=== PATIENT | female | born 1965 | race Caucasian/White ===

== ENCOUNTER 2016-12-15 09:19 | Emergency (ER) | payer MEDICARE ==
[2013-02-16 07:03] VITALS: BMI 23.2
== END 2016-12-15 16:29 | disposition home or self-care (01) ==
LOC: D.ER 09:19
DX: T14.8 Other injury of unspecified body region (principal); Y04.2XXA Assault by strike against or bumped into by another person, initial encounter; Y93.89 Activity, other specified; Y92.019 Unspecified place in single-family (private) house as the place of occurrence of the external cause; S02.2XXA Fracture of nasal bones, initial encounter for closed fracture; F20.9 Schizophrenia, unspecified; F17.200 Nicotine dependence, unspecified, uncomplicated

== ENCOUNTER 2017-07-18 13:47 | Emergency (ER) | payer MEDICARE ==
[2013-02-16 07:03] VITALS: BMI 23.2
[2017-07-18 18:11] LABS: BASOPHILS 0.2 % (0-2); EOSINOPHILS 2.4 % (0-7); HEMATOCRIT 45.2 % (36.0-48.0); HEMOGLOBIN 15.2 g/dL (12-16); IMMATURE GRANULOCYTES 0.1 % (0-5); LYMPHOCYTES 25.8 % (15-50); MCHC 33.6 g/dL (31.0-37.0); MCV 92.2 fL (80.0-100.0); MEAN PLATELET VOLUME 9.7 fL (7.4-10.4); MONOCYTES 9.5 % (2-11); PLATELET COUNT 195 10x3/uL (130-400); WBC 8.8 10x3/uL (4.8-10.8)
[2017-07-18 18:24] LABS: ALBUMIN 3.3 g/dL (3.4-5.0); ANION GAP 12.2 mmol/L (8-16); BILIRUBIN - TOTAL 0.22 mg/dL (0.2-1.3); CALCIUM 8.8 mg/dL (8.5-10.1); CARBON DIOXIDE 28.1 mmol/L (21.0-32.0); POTASSIUM - SERUM 4.3 mmol/L (3.5-5.1)
[2017-07-18 20:11] LABS: APPEARANCE HAZY (CLEAR); BILIRUBIN NEGATIVE (NEGATIVE); COLOR YELLOW (YELLOW); GLUCOSE NEGATIVE (NEGATIVE); KETONE NEGATIVE (NEGATIVE); LEUKOCYTE ESTERASE NEGATIVE (NEGATIVE); NITRITE NEGATIVE (NEGATIVE); PROTEIN NEGATIVE (NEGATIVE); SPECIFIC GRAVITY 1.025 (1.005-1.020); UROBILINOGEN NORMAL (NORMAL)
[2017-07-18 20:17] LABS: UDS - AMPHET POSITIVE QUAL (NEGATIVE); UDS - BARB NEGATIVE QUAL (NEGATIVE); UDS - BENZO POSITIVE QUAL (NEGATIVE); UDS - COCAINE NEGATIVE QUAL (NEGATIVE); UDS - METH NEGATIVE QUAL (NEGATIVE); UDS - OPIATE NEGATIVE QUAL (NEGATIVE); UDS - PCP NEGATIVE QUAL (NEGATIVE); UDS - THC POSITIVE QUAL (NEGATIVE)
== END 2017-07-18 23:01 | disposition home or self-care (01) ==
LOC: D.ER 13:47
PROVIDERS: Physician Assistant
DX: F32.9 Major depressive disorder, single episode, unspecified (principal); Z86.59 Personal history of other mental and behavioral disorders; M54.9 Dorsalgia, unspecified

== ENCOUNTER 2020-05-27 20:46 | Inpatient (IN) | payer MEDICARE ==
[~2020-05-27] VITALS: Ht 152.4 cm; Wt 105.1 kg
--- NOTE | ~2020-05-27 | EC ---
PATIENT:TAE HOUSTON DATE OF SERVICE: 05/27/20 SEX: F MEDICAL RECORD: [id number] DATE OF : 69 [place] AGE OF PATIENT: 54 ADMISSION DATE: 05/27/20 REFERRING PHYSICIAN: INTERPRETING PHYSICIAN: ELPIDIO FERRARI MD ECHOCARDIOGRAM REPORT ECHO CHARGES 4 ECHO COMPLETE Date: 06/03/20 CLINICAL DIAGNOSIS: CHF ECHOCARDIOGRAPHIC MEASUREMENTS (adult normal given) AC root (d.<3.7cm) 3.2 cm LV Septum d (<1.2 cm> 1.3 cm Valve Excursion 1.3 cm LV Septum (systole) 1.5 cm Left Atria (s.<4.0cm> 3.5 cm LVPW d(<1.2cm) 1.4 cm RV (d.<2.3cm) 3.1 cm LVPW (sytole) 1.8 cm LV diastole(<5.6CM) 4.6 cm MV E-F(>70mm/sec) cm LV systole 2.8 cm LVOT Diameter 1.7 cm MV exc.(>10mm) 1.7 cm Est.ejection fraction (50-75%) % DOPPLER: LVIT cm/sec A 106.0cm/sec E 126.0 cm/sec LA cm/sec RVSP 29 mmHg LVOT 172 cm/sec AOP1/2T m/s Asc. Ao 206 cm/sec RVOT 102 cm/sec RA cm/sec PA 152 cm/sec AV Gradient Peak 16.98mmHg AV Mean 11.16mmHg AV Area 1.8 cm MV Gradient Peak 8.03 mmHg MV Mean 3.38 mmHg MV Area cm COMMENTS: Real Estate Professor: 2 ROSALIE DIMAS Roping Machine Tender: 4 Dr. Ferrari TAPE# PACS Pericardial Effusion N DATE OF SERVICE: PROCEDURE: Transthoracic echocardiogram. FINDINGS: The left ventricle has moderate left ventricular hypertrophy. Ejection fraction is 55%. The inflow characteristics consistent of diastolic dysfunction. Left atrium is normal in size, shape, structure, and function. ECHOCARDIOGRAM REPORT [id number] TAE HOUSTON Aortic valve appears to be grossly normal. Mitral valve appears to be structurally normal. There has mild tricuspid regurgitation. RVSP is normal. Right ventricle is mildly dilated with normal function. Pulmonic valve is otherwise normal. TRANSINT:[id number] Voice Confirmation ID: [id number] DOCUMENT ID: [id number] ELPIDIO FERRARI MD CC: [id number] DICTATION DATE: 06/03/20 1621 DRESSMAKER HELPER: 06/03/20 2352 ADM IN [place] [id number] [place] [address]
[2020-05-27 21:16] LABS: BASOPHILS 0.1 % (0-2); EOSINOPHILS 0.6 % (0-7); HEMATOCRIT 38.4 % (36.0-48.0); HEMOGLOBIN 12.9 g/dL (12-16); IMMATURE GRANULOCYTES 0.4 % (0-5); LYMPHOCYTES 11.3 % (15-50); MCH 30.6 pg (26.0-34.0); MCHC 33.6 g/dL (31.0-37.0); MCV 91.2 fL (80.0-100.0); MEAN PLATELET VOLUME 8.5 fL (7.4-10.4); MONOCYTES 15.2 % (2-11); NEUTROPHILS 72.4 % (40-80); PLATELET COUNT 186 10x3/uL (130-400); RBC 4.21 10x6/uL (4.00-5.40); RDW 13.6 % (11.5-14.5); WBC 13.5 10x3/uL (4.8-10.8)
[2020-05-27 21:28] LABS: CALCIUM 8.2 mg/dL (8.5-10.1); CARBON DIOXIDE 24.5 mmol/L (21.0-32.0); CREATININE - SERUM 3.5 mg/dL (0.6-1.3); POTASSIUM - SERUM 3.5 mmol/L (3.5-5.1)
[2020-05-27 21:34] LABS: ALBUMIN 3.1 g/dL (3.4-5.0); BILIRUBIN - TOTAL 1.13 mg/dL (0.2-1.3); PROTEIN - SERUM 8.2 g/dL (6.4-8.2)
[2020-05-27 22:22] VITALS: BP 134/89
--- NOTE | 2020-05-27 23:00 | NUR ---
RECEIVED FROM ER, PT IS A&O, COMPLAINS OF PAIN TO DELORIS ER NURSE, HE SAID HE WOULD GET ER DR TO ORDER SOMETHING FOR PAIN, DELORIS RN DID GET SOMETHING ORDER, BUT WHILE I WAS DOING HOME MEDS PT COULDNT EVEN STAY AWAKE, WILL CONTINUE PLAN OF CARE
[2020-05-27] MEDS ORDERED: HYDROCODON-ACE1 EA10 PO (23:02)
[2020-05-27] MEDS ORDERED: NEURONTIN600 MG PO (23:04)
[2020-05-27] MEDS ORDERED: LEXAPRO20 MG (23:06)
[2020-05-27] MEDS ORDERED: COZAAR50 MG PO (23:07)
[2020-05-27] MEDS ORDERED: NORVASC5 MG PO (23:07)
[2020-05-27] MEDS ORDERED: NEXIUM20 MG PO (23:08)
[2020-05-27] MEDS ORDERED: OMEPRAZOLE20 M1 PO (23:33)
[2020-05-28] VITALS: BP 94/52
--- NOTE | 2020-05-28 01:30 | NUR ---
PODIATRIC FOOT AND ANKLE SPECIALIST IN ROOM DOING VITALS, PT COMPLAINS OF PAIN, WAS GOING TO ASSESS PAIN AND PT WAS SLEEPING AGAIN, WILL CONTINUE PLAN OF CARE
[2020-05-28 04:00] VITALS: BP 94/54; BMI 41.3
[2020-05-28 06:12] LABS: ALBUMIN 2.7 g/dL (3.4-5.0); ANION GAP 15.9 mmol/L (8-16); BILIRUBIN - TOTAL 0.63 mg/dL (0.2-1.3); CALCIUM 7.2 mg/dL (8.5-10.1); CARBON DIOXIDE 19.5 mmol/L (21.0-32.0); CREATININE - SERUM 2.7 mg/dL (0.6-1.3); MAGNESIUM - SERUM 2.3 mg/dL (1.8-2.4); PHOSPHOROUS 3.6 mg/dL (2.5-4.9); POTASSIUM - SERUM 3.4 mmol/L (3.5-5.1); PROTEIN - SERUM 6.7 g/dL (6.4-8.2)
[2020-05-28 06:51] LABS: BASOPHILS 0.2 % (0-2); EOSINOPHILS 0.8 % (0-7); HEMATOCRIT 34.2 % (36.0-48.0); HEMOGLOBIN 11.4 g/dL (12-16); IMMATURE GRANULOCYTES 0.3 % (0-5); LYMPHOCYTES 9.6 % (15-50); MCH 30.2 pg (26.0-34.0); MCHC 33.3 g/dL (31.0-37.0); MCV 90.7 fL (80.0-100.0); MEAN PLATELET VOLUME 9.6 fL (7.4-10.4); MONOCYTES 17.8 % (2-11); NEUTROPHILS 71.3 % (40-80); PLATELET COUNT 201 10x3/uL (130-400); RBC 3.77 10x6/uL (4.00-5.40); RDW 13.6 % (11.5-14.5); WBC 12.3 10x3/uL (4.8-10.8)
--- NOTE | 2020-05-28 06:53 | NUR ---
ADMISSION ASSESSMENT COMPLETED PER RN
--- NOTE | 2020-05-28 07:20 | NUR ---
RECIEVE REPORT. ALERT AND ORIENTED X4. UP AMBULATING TO RESTROOM. GAIT STEADY. IV INFUSING ORDERED. DENIES ANY NEEDS AT THIS TIME. CONTINUE PLAN OF CARE AND SAFETY PRECAUTIONS.
[2020-05-28 08:10] VITALS: BP 94/57
[2020-05-28 11:14] VITALS: BMI 41.2
[2020-05-28 11:24] VITALS: BP 118/69
[2020-05-28 17:41] VITALS: BP 107/63
--- NOTE | 2020-05-28 19:20 | NUR ---
RECEIVED REPORT, WILL ASSUME CARE OF PT, DENIES ANY NEEDS AT THIS TIME, BED IS LOW, SRX2, CALL LIGHT IN REACH, WILL CONTINUE PLAN OF CARE
--- NOTE | 2020-05-28 20:30 | NUR ---
ANSWERED CALL LIGHT, PT ASKING TO SHOWER, ASSISTED PT TO GET READY FOR SHOWER, SALES SPECIAL AGENT CHANGED LINEN, WILL CONTINUE PLAN OF CARE
[2020-05-28 21:47] VITALS: BP 125/70
[2020-05-29 00:30] VITALS: BP 93/52
--- NOTE | 2020-05-29 02:33 | NUR ---
I have reviewed this patient and I concur with the Shift Assessment completed by the Licensed Practical Nurse today this shift.
[2020-05-29 04:00] VITALS: BP 104/58
[2020-05-29 06:33] LABS: BASOPHILS 0.1 % (0-2); EOSINOPHILS 1.4 % (0-7); HEMATOCRIT 31.9 % (36.0-48.0); HEMOGLOBIN 10.5 g/dL (12-16); IMMATURE GRANULOCYTES 0.2 % (0-5); LYMPHOCYTES 11.5 % (15-50); MCH 30.3 pg (26.0-34.0); MCHC 32.9 g/dL (31.0-37.0); MCV 91.9 fL (80.0-100.0); MEAN PLATELET VOLUME 9.3 fL (7.4-10.4); MONOCYTES 13.2 % (2-11); NEUTROPHILS 73.6 % (40-80); PLATELET COUNT 170 10x3/uL (130-400); RBC 3.47 10x6/uL (4.00-5.40); RDW 13.6 % (11.5-14.5); WBC 9.9 10x3/uL (4.8-10.8)
[2020-05-29 06:34] LABS: % SATURATION 7 % (15-55); IRON 12 ug/dl (35-150); TOTAL IRON BIND CAPACITY 164 ug/dl (260-445); UNSAT IRON BIND CAPACITY 152 ug/dl (150-375)
[2020-05-29 07:29] LABS: ANION GAP 13.9 mmol/L (8-16); CALCIUM 8.1 mg/dL (8.5-10.1); CARBON DIOXIDE 22.4 mmol/L (21.0-32.0); CREATININE - SERUM 1.4 mg/dL (0.6-1.3); POTASSIUM - SERUM 3.3 mmol/L (3.5-5.1)
[2020-05-29 08:49] VITALS: BP 124/74
[2020-05-29 09:10] VITALS: Ht 152.4 cm; Wt 105.1 kg
[2020-05-29 12:14] VITALS: BP 128/73
[2020-05-29 15:23] VITALS: BP 115/71
--- NOTE | 2020-05-29 16:50 | NUR ---
I have reviewed this patient and I concur with the Shift Assessment completed by the Licensed Practical Nurse today this shift.
[2020-05-29 20:00] VITALS: BP 123/75
--- NOTE | 2020-05-29 22:21 | NUR ---
Patient awake, sitting in bathroom giving self bed bath, patient replacing colostomy bag, patient tolerating well, IV infusing without complications, will continue to monitor patient, call light within reach
[2020-05-30] VITALS: BP 103/62
[2020-05-30 04:00] VITALS: BP 110/60
[2020-05-30 06:50] LABS: BASOPHILS 0.1 % (0-2); EOSINOPHILS 2.5 % (0-7); HEMATOCRIT 34.5 % (36.0-48.0); HEMOGLOBIN 11.5 g/dL (12-16); IMMATURE GRANULOCYTES 0.2 % (0-5); LYMPHOCYTES 17.2 % (15-50); MCH 30.5 pg (26.0-34.0); MCHC 33.3 g/dL (31.0-37.0); MCV 91.5 fL (80.0-100.0); MEAN PLATELET VOLUME 9.5 fL (7.4-10.4); MONOCYTES 19.5 % (2-11); NEUTROPHILS 60.5 % (40-80); PLATELET COUNT 201 10x3/uL (130-400); RBC 3.77 10x6/uL (4.00-5.40); RDW 13.4 % (11.5-14.5); WBC 8.3 10x3/uL (4.8-10.8)
[2020-05-30 07:00] LABS: ANION GAP 10.6 mmol/L (8-16); CALCIUM 7.9 mg/dL (8.5-10.1); CARBON DIOXIDE 26.6 mmol/L (21.0-32.0); CREATININE - SERUM 1.2 mg/dL (0.6-1.3); POTASSIUM - SERUM 3.2 mmol/L (3.5-5.1)
[2020-05-30 08:00] VITALS: BP 101/58
--- NOTE | 2020-05-30 11:48 | NUR ---
INSERTED NG TUBE AND WATING ON CONFIRMATION FROM XRAY, PATIENT TOLERATED WITHOUT COMPLAINTS.
[2020-05-30 11:51] VITALS: BP 101/58
--- NOTE | 2020-05-30 12:33 | NUR ---
Nutrition Follow-up: Noted pt to OR tomorrow for incarcerated incisional hernia repair and ileostomy reversal; orders for NGT to LIWS. Diet: NPO Wt: 211# (05/28) Labs noted: Na 135, K+ 3.2, Ca 7.9 Meds noted: NS @ 100, Zofran, electrolyte protocol -Pt NPO/clear liquid diet since admit with upcoming surgery; rec may consider nutrition support (possibly Procal). -Monitor wt. -RD following.
[2020-05-30 16:30] VITALS: BP 101/58
[2020-05-30 17:37] LABS: GLUCOSE NEGATIVE (NEGATIVE); KETONE NEGATIVE (NEGATIVE); NITRITE POSITIVE (NEGATIVE)
[2020-05-30 17:38] LABS: BACTERIA MANY /hpf (NEGATIVE); BILIRUBIN NEGATIVE (NEGATIVE); EPITHELIAL CELLS 0-5 /hpf (0-5); RED CELLS - URINE OCC /hpf (0-5); UROBILINOGEN NORMAL (NORMAL); WHITE CELLS - URINE RARE /hpf (NEGATIVE); YEAST <1+ /hpf (NONE SEEN)
[2020-05-30 17:41] LABS: UDS - AMPHET NEGATIVE QUAL (NEGATIVE); UDS - BARB NEGATIVE QUAL (NEGATIVE); UDS - BENZO NEGATIVE QUAL (NEGATIVE); UDS - COCAINE NEGATIVE QUAL (NEGATIVE); UDS - OPIATE POSITIVE QUAL (NEGATIVE); UDS - PCP NEGATIVE QUAL (NEGATIVE); UDS - THC POSITIVE QUAL (NEGATIVE)
--- NOTE | 2020-05-30 19:45 | NUR ---
PATIENT IS RESTING COMFORTABLY IN BED. SHE ASKED FOR PAIN MEDS. SHE IS ALERT AND ORIENTED. SHE HAS A COLOSTOMY.
[2020-05-30 20:00] VITALS: BP 137/72
[2020-05-31] VITALS (15 sets, daily range): BP systolic 82–159; BP diastolic 48–104
--- NOTE | 2020-05-31 04:46 | NUR ---
PATIENT IS SLEEPING IN BED. WE CHANGED HER COLOSTOMY. SHE IS ON A NG TUBE. SHE HAS GREENISH OUT PUT IN NG. SHE HAS RECIEVED IV GILLESPIE MEDS TWICE.
[2020-05-31 06:56] LABS: BASOPHILS 0.2 % (0-2); EOSINOPHILS 2.4 % (0-7); HEMATOCRIT 32.9 % (36.0-48.0); HEMOGLOBIN 10.7 g/dL (12-16); IMMATURE GRANULOCYTES 1.4 % (0-5); LYMPHOCYTES 21.7 % (15-50); MCH 29.9 pg (26.0-34.0); MCHC 32.5 g/dL (31.0-37.0); MCV 91.9 fL (80.0-100.0); MEAN PLATELET VOLUME 9.1 fL (7.4-10.4); MONOCYTES 17.4 % (2-11); NEUTROPHILS 56.9 % (40-80); PLATELET COUNT 193 10x3/uL (130-400); RBC 3.58 10x6/uL (4.00-5.40); RDW 13.3 % (11.5-14.5); WBC 6.7 10x3/uL (4.8-10.8)
[2020-05-31 07:06] LABS: ANION GAP 12.7 mmol/L (8-16); CALCIUM 7.9 mg/dL (8.5-10.1); CARBON DIOXIDE 24.4 mmol/L (21.0-32.0); CREATININE - SERUM 1.1 mg/dL (0.6-1.3); POTASSIUM - SERUM 3.1 mmol/L (3.5-5.1)
--- NOTE | 2020-05-31 09:37 | NUR ---
URINE SENT TO LAB AT APPROX. 1630 05/30/20 AND WAS TAKEN PER HAND BY [employer] INTEGRATION SPECIALIST AND SIGNED IN BY THIS NURSE RECEIVED NOTICE TODAY THAT RESULTS WERE NOT RECEIVED. LAB WAS CALLED AND TOLD US THAT THE URINE WAS STILL THERE AND IT WAS NEVER RESULTED BUT THEY WOULD RUN IT NOW, AWAITING RESULTS.
--- NOTE | 2020-05-31 10:00 | NUR ---
PATIENT OFF THE FLOOR AT 0820 FOR SURGERY.
--- NOTE | 2020-05-31 13:00 | NUR ---
REC'D FROM SURGICAL TEAM VIA BED, ETT TO AMBU BAG PLACED TO VENT, SETTING PER FLOWHEET, CONNECTED TO ICU MONITOR, VSS, AROUSES TO VERBAL STIMULI, SEDATION AND PAIN MEDS INITIATED, CHEST XRAY TAKEN ON ARRIVAL, ASSESSMENT COMPLETED PER FLOWSHEET, PULLING AT LINES, WRIST RESTRAINTS PLACED, REPOSOITINED TO BACK WITH HOB AT 30 DEGREES
--- NOTE | 2020-05-31 13:45 | NUR ---
PC TO SISTER AND SIGNIFICANT OTHER, STATUS UPDATED, SECURITY CODE GIVEN FOR PHONE UPDATES
--- NOTE | 2020-05-31 15:00 | NUR ---
VENT ALARMING, TO BEDSIDE, AGITATED, PULLING AT LINES, PRN ORDER FOR VERSED GIVEN PER MAR FLOWSHEET
--- NOTE | 2020-05-31 15:30 | NUR ---
VENT ALARMING, AGITATED, PC TO DR BERMUDEZ, NEW ORDER GIVEN TO START PROPOFAL AND TITRATE
--- NOTE | 2020-05-31 17:30 | NUR ---
RESTING WITH NO SIGNS OF DISTRESS, VSS, WILL CONTINUE TO MONITOR
--- NOTE | 2020-05-31 19:45 | NUR ---
PT BELONGINGS BROUGHT FROM M2 BY RITU KIMBALL AND PLACED IN ROOM.
--- NOTE | 2020-05-31 21:38 | OP ---
PATIENT NAME: TAE HOUSTON MEDICAL RECORD: [id number] :69 LOCATION:[facility] D.2303 ADMISSION DATE:05/27/20 SURGEON: JAMES TRIPLETT MD DATE OF OPERATION: 05/31/2020 SURGEON: James Triplett MD PREOPERATIVE DIAGNOSES: 1. Incarcerated incisional hernia. 2. Incarcerated parastomal hernia. POSTOPERATIVE DIAGNOSES: 1. Incarcerated incisional hernia. 2. Incarcerated parastomal hernia. 3. Necrotic perforated right colon. OPERATIVE PROCEDURE: 1. Exploratory laparotomy with incarcerated incisional hernia repair with mesh. 2. Incarcerated parastomal hernia repair. 3. Right hemicolectomy. 4. Placement of negative pressure wound therapy greater than 50 square cm. COMPLICATIONS: None. SPECIMENS: Right colon. ANESTHESIA: General. ESTIMATED BLOOD LOSS: 200 cc. WOUND CLASS: Grossly contaminated. OPERATIVE COURSE: After consent was obtained, the patient was taken to the operating room and placed in the supine position on the operating table. Next, general anesthesia was given via endotracheal intubation after a timeout was performed to confirm the correct patient and procedure. An elliptical incision was made around the right lower quadrant diverting loop ileostomy. Skin was incised with a 15-blade scalpel. Dissection continued through subcutaneous tissue with electrocautery, immediately entered was to the hernia sac. There was a large parastomal hernia. As we were dissecting through the subcutaneous tissue, a large abscess was encountered with gross contamination. During this, we noted that the right colon had full thickness necrosis with rupture and contained abscess into the subcutaneous tissue and hernia sac. The dissection continued through the right lower quadrant subcutaneous tissue until the fascia was identified. The fascia was circumferentially dissected and the tissue was isolated. Once we had the hernia, dissection down on the parastomal hernia at the previous midline incision was opened with a 15-blade scalpel. Dissection was carried through the subcutaneous tissue with electrocautery, immediately again entering into the hernia sac. Once we entered into the hernia sac, again dissection continued with direct vision using electrocautery. At this time, all contents of the small bowel were reduced through the right lower quadrant ileostomy site and the small bowel was extracorporealized through the midline incision. There was no evidence of perforation on preoperative rectal contrast CT, although there again noted was full thickness necrosis of the right colon. The patient had a previous extended left hemicolectomy with colorectal OPERATIVE REPORT [id number] TAE HOUSTON anastomosis and diverting loop ileostomy. At this time, it was decided to perform a total abdominal colectomy due to necrosis of the right colon, necrosis extending from the level of the cecum to the colorectal anastomosis. The terminal ileum was transected using DIALLO linear cutting stapler. The mesentery was taken with the Harmonic scalpel. Dissection continued into the pelvis where the previous colorectal anastomosis was encountered. A contour DIALLO stapler was then used to transect the rectum just distal to the previous staple line. At this time, the right colon was passed off the field and sent for permanent pathology. The abdomen was copiously irrigated and suctioned with 3 liters of warm normal saline. Small bowel was run from the ligament of Treitz to the terminal ileum. There was no evidence of bowel injury. No evidence of bleeding. The right lower quadrant hernia site was closed with interrupted 0 Prolene suture in an interrupted [id number] fashion. At this time, subcutaneous tissue was dissected off the fascia to allow for a potential component separation for abdominal wall closure. We created flaps in 5-10 cm circumferentially. The hernia sac was dissected at the midline incision. A terminal ileostomy was placed into the right upper quadrant. A cruciate incision was made in the anterior fascia. The rectus muscles were gently spread and the peritoneum was incised with electrocautery. The terminal ileum was delivered through the incision site. A skin incision was then made and the terminal ileum was brought out through the skin in the right upper quadrant. A TATE drain was placed through the left lower quadrant, stab incision into the pelvis. Again, the abdomen was again irrigated and suctioned. The small bowel was run one additional time from the ligament of Treitz to terminal ileum. With subcutaneous flaps created, the fascia was closed with two #1 looped PDS. We were able to get all the small bowel back within the abdomen with minimal to moderate tension of the midline incision. At this time, a Phasix mesh was placed as an onlay and secured to the anterior fascia reinforcing the incisional hernia repair. It was secured with interrupted 3-0 Vicryl suture. Deep subcutaneous tissue was reapproximated using 3-0 Vicryl suture. At this time, black sponges were placed into both incisions and placed a negative pressure wound therapy with good seal. A terminal ileostomy was then created in a standard [facility] fashion using interrupted 3-0 Vicryl suture in the right upper quadrant and an ostomy bag was placed. At the end of the case, all needle and instrument counts were correct. No complications occurred. The patient was transferred to the intensive care unit in guarded condition, intubated. TRANSINT:[id number] Voice Confirmation ID: [id number] DOCUMENT ID: [id number] JAMES TRIPLETT MD at 2138 CC: [id number] DICTATION DATE: 05/31/[address] COMMISSIONER: 05/31/20 1706 ADM IN [place] [id number] [place] [id number]
[2020-06-01] VITALS (25 sets, daily range): BP systolic 80–115; BP diastolic 48–73
[2020-06-01 05:23] LABS: BASOPHILS 0.3 % (0-2); EOSINOPHILS 0.2 % (0-7); HEMATOCRIT 31.1 % (36.0-48.0); IMMATURE GRANULOCYTES 1.1 % (0-5); LYMPHOCYTES 8.9 % (15-50); MCH 30.1 pg (26.0-34.0); MCHC 32.2 g/dL (31.0-37.0); MCV 93.7 fL (80.0-100.0); MEAN PLATELET VOLUME 9.3 fL (7.4-10.4); MONOCYTES 13.8 % (2-11); NEUTROPHILS 75.7 % (40-80); PLATELET COUNT 212 10x3/uL (130-400); RBC 3.32 10x6/uL (4.00-5.40); RDW 13.9 % (11.5-14.5)
[2020-06-01 05:26] LABS: WBC 11.9 10x3/uL (4.8-10.8)
[2020-06-01 05:29] LABS: CARBON DIOXIDE 22.7 mmol/L (21.0-32.0)
[2020-06-01 05:31] LABS: ANION GAP 15.1 mmol/L (8-16); CALCIUM 6.9 mg/dL (8.5-10.1); CREATININE - SERUM 1.7 mg/dL (0.6-1.3); POTASSIUM - SERUM 3.8 mmol/L (3.5-5.1)
--- NOTE | 2020-06-01 07:10 | NUR ---
REPORT RECIEVED FROM ROLL UP OPERATOR AND PATIENT CARE ASSUMED. PATIENT LAYING IN BED SEDATED WITH VENT IN PLACE. VSS. WILL CONTINUE WITH PLAN OF CARE. SR UP X 2 BED IN LOW POSITION AND CALL LIGHT IN REACH. WRIST RESTRAINTS IN PLACE.
--- NOTE | 2020-06-01 07:10 | NUR ---
REPORT RECIEVED FROM ENVIRONMENTAL HEALTH TECHNOLOGIST AND PATIENT CARE ASSUMED. PATIENT LAYING IN BED ON BACK WITH DIPROVAN INFUSING AND VENT IN PLACE. VENT SETTINGS AC 15, TIDAL VOLUME 500 ML, FIO2 50%, PEEP 5.0 ETT 7. 22CM AT LIPLINE. BP 89/50. DECREASED DIPROVAN FROM 20 TO 15 MCG. FENTANYL AND NS SALINE INFUSING. WILL CONTINUE WITH PLAN OF CARE. SR UP X 2 BED IN LOW POSITION AND CALL LIGHT IN REACH.
--- NOTE | 2020-06-01 08:00 | NUR ---
DR PATIÑO IN ROOM. INSTRUCTED TO CONTINUE TO TITRATED DIPROVAN IN ORDER TO RAISE BP EVEN IF PATIENT AWAKENS. NEW ORDER RECEIVED.
--- NOTE | 2020-06-01 08:21 | NUR ---
NEW ORDERS RECEIVED FOR CVP LINE. LINE PLACE WITH OUT DIFFCULTY WITH PRESSURE AT 18.
--- NOTE | 2020-06-01 09:00 | NUR ---
ASSESMENT COMPLETED. PATENT SEDATED WITHOUT AGITATION. DIPROVAN INFUSING AT 15 AND NS AT 1000CC PER HR FOR [address] PATIÑO. WILL CONTINUE TO MONITOR.
--- NOTE | 2020-06-01 11:00 | NUR ---
RE-ASSESMENT COMPLETED.PATIENT IS STABLE AND VSS. BP 98/57 CVP 14. WRIST RESTRAINTS IN PLACE . WILL CONTINUE TO MONITOR. SR UP X 2 BED IN LOW POSITION AND CALL LIGHT IN REACH.
[2020-06-01 12:28] LABS: MAGNESIUM - SERUM 1.4 mg/dL (1.8-2.4); PHOSPHOROUS 5.2 mg/dL (2.5-4.9)
--- NOTE | 2020-06-01 13:15 | NUR ---
PATIENT IS STABLE AND VSS. PATIENT RESPOSITONED FOR COMFORT. WILL CONTINUE TO MONITOR. SR UPX 2 BED IN LOW POSITION AND CALL LIGHT IN REACH.
--- NOTE | 2020-06-01 14:00 | NUR ---
PATIENT SISTER CALLED AND HAD CORRECT SECURITY CODE. ANSWERED SISTER QUESTIONS TO SATISFACTION.
--- NOTE | 2020-06-01 14:30 | NUR ---
REPOSTIONED PATIENT FOR COMFORT. PATIENT IS STABLE AND VSS. WILL CONTINUE TO MONITOR. SR UP X 2 BED IN LOW POSITION AND CALL LIGHT IN REACH.
[2020-06-01 15:13] LABS: OVA + PARASITE EXAM Final report (())
--- NOTE | 2020-06-01 15:15 | NUR ---
RE-ASSESSMENT COMPLETED. SEE FORM FOR DETAILS.
--- NOTE | 2020-06-01 17:51 | NUR ---
PATIENT REPOSITONED FOR COMFORT. PATIENT IS STABLE AND VSS. WILL CONTINUE TO MONITOR. SR UP X 2 BED IN LOW POSITION AND CALL LIGHT IN REACH.
--- NOTE | 2020-06-01 20:00 | NUR ---
REPORT RECEIVED. INITIAL ASSESSMENT COMPLETE SEE FLOWSHEETS. PT SEDATED WITH FENTANYL AND DIPRIVAN SEE IV FLOWSHEET FOR DRIP CHANGES. OPENS EYES AND NODS HEAD APPROPRIATELY TO QUESTIONS FOLLOWS COMMANDS. SEE RT NOTES AND FLOWSHEETS FOR VENT CHANGES AND SETTINGS. BED LOW POSITION. CM READING SR WITHOUT ECTOPY ALARMS ON AND AUDIBLE. CPOC
--- NOTE | 2020-06-01 23:00 | NUR ---
REASSESSMENT COMPLETE NO CHANGES
[2020-06-02] VITALS (24 sets, daily range): BP systolic 88–110; BP diastolic 42–76
--- NOTE | 2020-06-02 03:00 | NUR ---
REASSESSMENT COMPLETE SEE FLOWSHEET REPOSITIONED AND ORAL CARE PROVIDED
--- NOTE | 2020-06-02 06:00 | NUR ---
COMPLETE CHG BATH AND COMPLETE LINEN CHANGE
[2020-06-02 06:02] LABS: BASOPHILS 0.1 % (0-2); EOSINOPHILS 0.5 % (0-7); HEMATOCRIT 26.7 % (36.0-48.0); HEMOGLOBIN 8.3 g/dL (12-16); IMMATURE GRANULOCYTES 1.2 % (0-5); LYMPHOCYTES 8.9 % (15-50); MCH 29.7 pg (26.0-34.0); MCHC 31.1 g/dL (31.0-37.0); MEAN PLATELET VOLUME 8.8 fL (7.4-10.4); MONOCYTES 8.6 % (2-11); NEUTROPHILS 80.7 % (40-80); PLATELET COUNT 185 10x3/uL (130-400); RBC 2.79 10x6/uL (4.00-5.40); RDW 14.5 % (11.5-14.5); WBC 11.1 10x3/uL (4.8-10.8)
[2020-06-02 06:03] LABS: MCV 95.7 fL (80.0-100.0)
--- NOTE | 2020-06-02 06:43 | NUR ---
2100-REPOSITIONED, ORAL CARE PROVIDED. 2300-REASSESSMENT COMPLETED. REPOSITIONED, ORAL CARE PROVIDED. 0100-REPOSITIONED, ORAL CARE PROVIDED. VSS. 0300-REASSESSMENT. REPOSITIONED, ORAL CARE PROVIDED. 0500-REPOSITIONED, ORAL CARE PROVIDED. VSS
[2020-06-02 06:56] LABS: LYMPHOCYTES 18 % (15-50); NEUTROPHILS 77 % (40-80); PLATELET ESTIMATE NORMAL
[2020-06-02 06:56] LABS: CARBON DIOXIDE 22.8 mmol/L (21.0-32.0); CREATININE - SERUM 1.3 mg/dL (0.6-1.3); MAGNESIUM - SERUM 1.6 mg/dL (1.8-2.4); POTASSIUM - SERUM 3.8 mmol/L (3.5-5.1)
[2020-06-02 06:58] LABS: PHOSPHOROUS 3.7 mg/dL (2.5-4.9)
[2020-06-02 07:01] LABS: CALCIUM 6.9 mg/dL (8.5-10.1)
--- NOTE | 2020-06-02 07:24 | NUR ---
Nutrition consult: Received order 06/01/[address] Triplett to begin TPN. Chart reviewed; labs ordered TPN on 06/01/20 started at 40 ml/hr; pt currently on propofol 06/02/20 Chart reviewed Mg low; Cl high; Ca low; glucose elevated TPN formula adjusted and rate increased to 60 ml/hr to better meet pts estimated energy needs. RDN following.
--- NOTE | 2020-06-02 09:57 | NUR ---
0700 REPORT RECIEVED AND CARE ASSUMED OF PATIENT.. SEE FLOW SHEET FOR SHIFT ASSESMENT FINDINGS.. PT IS ORALLY INTUBATED AND SEDATED ON VENT .. COLOSTOMY BAG IN PALCE AND WOUND VAC TO MID ABDOMINAL INCISION BROWN DRAINAGE IN TUBING.. TATE DRAIN ON LEFT WITH BROWN DRAINAGE.. SEDATED WITH DIPRIVAN AND FENTANYLL [address] TINSLEY IN TO SEE PATIENT UPDATE IS GIVEN...
--- NOTE | 2020-06-02 14:42 | NUR ---
1140 DR BERMUDEZ IN TO SEE PATIENT UPDATE IS GIVEN.. 1200 BS 173 1400 SPUTUM OBTAINED BY RT PER ORDER..
--- NOTE | 2020-06-02 14:43 | NUR ---
1415 SAT IN LOW 90s RT INFORMED 1440 FIO2 INCREASED TO 90% ON VENT BY RT PEEP REMAINS AT 7
--- NOTE | 2020-06-02 17:17 | NUR ---
1500 SPUTUM OBTAINED AND SENT TO LAB.. 1600PT IS WITHOUT CHANGES 1630 I AND O DONE... 1700 DR BERMUDEZ IN TO SEE PATIENT.. VENT CHANGES MADE BY HIM AT THIS TIME..AC 20 TV 420 90% FIO2 AND 8 PEEP
--- NOTE | 2020-06-02 19:00 | NUR ---
REPORT RECEIVED INITIAL ASSESSMENT COMPLETE SEE FLOWSHEET FOR FULL ASSESSMENT. SEDATED WITH DIPRIVAN AND FENTANYL SEE IV FLOWHEET FOR DRIP CHANGES. ORALLY INTUBATED TO VENT WITH FIO2 UP TO 90% SEE RESP THERAPY NOTES FOR VENT CHANGES. CM READING SR WITHOUT ECTOPY ALARMS ON AND AUDIBLE. BED LOW POSITION SIDE RAILS UP TIMES 3 FOR BED MOBILITY AND SAFETY. CPOC
--- NOTE | 2020-06-02 23:00 | NUR ---
REASSESSMENT COMPLETE NO CHANGES VSS CPOC
--- NOTE | 2020-06-02 23:45 | NUR ---
SPUTUM SPECIMEN OBTAINED BY RT AND SENT TO LAB
[2020-06-03] VITALS (29 sets, daily range): BP systolic 99–117; BP diastolic 48–63
--- NOTE | 2020-06-03 03:00 | NUR ---
REASSESSMENT COMPLETE NO CHANGES CPOC REPOSITIONED AND ORAL CARE PROVIDED.
--- NOTE | 2020-06-03 06:00 | NUR ---
AM LABS DRAWN SENT TO LAB
[2020-06-03 06:46] LABS: BASOPHILS 0.1 % (0-2); EOSINOPHILS 0.7 % (0-7); HEMATOCRIT 25.8 % (36.0-48.0); HEMOGLOBIN 7.8 g/dL (12-16); IMMATURE GRANULOCYTES 1.1 % (0-5); MCH 29.4 pg (26.0-34.0); MCHC 30.2 g/dL (31.0-37.0); MCV 97.4 fL (80.0-100.0); MEAN PLATELET VOLUME 8.9 fL (7.4-10.4); MONOCYTES 6.3 % (2-11); NEUTROPHILS 82.8 % (40-80); PLATELET COUNT 183 10x3/uL (130-400); RBC 2.65 10x6/uL (4.00-5.40); RDW 14.9 % (11.5-14.5)
[2020-06-03 06:51] LABS: WBC 14.8 10x3/uL (4.8-10.8)
[2020-06-03 07:00] LABS: INR 1.41 (0.85-1.17); PROTIME 17.2 SECONDS (11.6-15.0)
--- NOTE | 2020-06-03 07:00 | NUR ---
REPORT TO MIGNON INFORMED OF PTS SISTER WANTING TO TALK TO DR BERMUDEZ.
[2020-06-03 07:06] LABS: ALBUMIN 1.2 g/dL (3.4-5.0); ANION GAP 10.3 mmol/L (8-16); BILIRUBIN - DIRECT 0.31 mg/dL (0.00-0.30); BILIRUBIN - INDIRECT 0.21 mg/dL (0.00-1.00); BILIRUBIN - TOTAL 0.52 mg/dL (0.2-1.3); CALCIUM 7.3 mg/dL (8.5-10.1); CARBON DIOXIDE 22.7 mmol/L (21.0-32.0); CREATININE - SERUM 1.5 mg/dL (0.6-1.3); MAGNESIUM - SERUM 1.8 mg/dL (1.8-2.4); PHOSPHOROUS 2.6 mg/dL (2.5-4.9); PROTEIN - SERUM 5.4 g/dL (6.4-8.2)
--- NOTE | 2020-06-03 08:59 | NUR ---
0700 REPORT RECIEVED AND CARE ASSUMED OF PATIENT.. SEE FLOW SHEET FOR SHIFT ASSESMENT FINDINGS.. 0800 MEDS GIVEN.. [address]WN 0850 FIO2 100% BY RT
--- NOTE | 2020-06-03 09:27 | NUR ---
Nutrition follow-up: Chart reviewed Labs: Na,Cl high TPN formula adjusted; Na, Cl taken out Rate: 60 ml/hr No intralipids at this time due to propofol in use RDN following.
--- NOTE | 2020-06-03 17:55 | NUR ---
1030 ECHO IN PROGRESS AT BEDSIDE.. DR CARROLL IN TO SEE PATIENT..BLOOD CULTURES ARE DRAWN FOR TEMP OF 102 8 1045 LAB CALLED PT IS CONTACT ISOLATION 1100 DR BERMUDEZ IN TO SEE PATIENT.. VENT CHANGES MADE BY HIM.. AC20 TV420 FIO2 100% AND PEEP TO 10 BY .. 1200 SISTER NELSON CALLED SPOKE WITH DR BERMUDEZ RE PATIENT STATUS.. 1300 TEMP NOW 101.[address] CARROLL CALLED FOR UPDATE ON PATIENTS TEMP OF 102.8 PRIOR TO BLOOD BEING INFUSED.. ORDERS FOR PRE TREATMENT RECIEVED.. 1600 BENADRY 25 AND TYLENOL SUPPOSITORY 650 GIVEN PRE PRBC INFUSION. 1605 PRBC INITIATED.. 1700 PRBC CONTINUE TO INFUSE.. I AND O DONE
--- NOTE | 2020-06-03 18:35 | NUR ---
1800 PRBC THRU INFUSING.. WITHOUT REACTION
[2020-06-04] VITALS (25 sets, daily range): BP systolic 99–116; BP diastolic 51–64
--- NOTE | 2020-06-04 06:00 | NUR ---
2014 ASSUMED CARE FROM OFF-GOING NURSE ON VENT. INITIAL ASSESSMENT COMPLETED AND RECORDED PER FLOW SHEET.O2 SATS UPPER 90S. R TLSC PATENT WITH FLUIDS PER IV FLOW SHEET, SITE CLEAR. R SIDE OF ABD WITH COLOSTOMY WITH DK STOOL, LOWER ABD WITH WOUND VAC PATENT, DSG INTACT. GAMEZ IN SITU WITH CLOUDY, SEDIMENTED URINE. ALEKSANDR SCDs ON. WILL MONITOR. 2400 FSBS 190, CVP LEVELED AND ZEROED GETTING A READING OF 12. NO CHANGES IN ASSESSMENT. 0330 - LYING QUIETLY, SEDATED BY FENTANYL AND DIPRIVAN. RIDING THE VENT. O2 SAT CONT UPPER 90S 0600 - FSBS 220 CVP 13. WILL CONT WITH CURRENT PLAN OF CARE.
[2020-06-04 06:12] LABS: BASOPHILS 0.2 % (0-2); EOSINOPHILS 1.6 % (0-7); HEMATOCRIT 27.5 % (36.0-48.0); HEMOGLOBIN 8.4 g/dL (12-16); MCH 29.6 pg (26.0-34.0); MCHC 30.5 g/dL (31.0-37.0); MCV 96.8 fL (80.0-100.0); MEAN PLATELET VOLUME 9.1 fL (7.4-10.4); MONOCYTES 7.6 % (2-11); NEUTROPHILS 79.6 % (40-80); PLATELET COUNT 175 10x3/uL (130-400); RBC 2.84 10x6/uL (4.00-5.40); RDW 16.4 % (11.5-14.5); WBC 15.3 10x3/uL (4.8-10.8)
[2020-06-04 06:23] LABS: ANION GAP 11.8 mmol/L (8-16); CALCIUM 7.9 mg/dL (8.5-10.1); CARBON DIOXIDE 22.4 mmol/L (21.0-32.0); CREATININE - SERUM 1.5 mg/dL (0.6-1.3); PHOSPHOROUS 2.8 mg/dL (2.5-4.9); POTASSIUM - SERUM 4.2 mmol/L (3.5-5.1); VANCOMYCIN - RANDOM 19.5 ug/mL (10.0-20.0)
--- NOTE | 2020-06-04 07:19 | NUR ---
Nutrition follow-up: Chart reviewed. Labs reviewed: Na, Cl still high; none in TPN formula Running temp now Edema noted; may need to decrease IVF Will continue current TPN formula @ 60 ml/hr RDN following.
--- NOTE | 2020-06-04 07:30 | NUR ---
ASSESSMENT COMPLETE PER FLOWSHEET. DR PATIÑO HERE. CHANGE WOUND VAC DRESSING. INCISION LINE BEEFY IN LOOK PACKED WITH BLACK WOUND VAC SPONGE AND RECONNECTED TO SUCTION. NEW ORDERS OBTAINED.
--- NOTE | 2020-06-04 11:00 | NUR ---
MOUTH CARE DONE AND PATIENT SUCTIONED.
--- NOTE | 2020-06-04 13:00 | NUR ---
MOUTH CARE COMPLETE, PT SUCTION.
--- NOTE | 2020-06-04 15:00 | NUR ---
REPOSITIONED IN BED. PILLOWS TO BACK.
--- NOTE | 2020-06-04 16:33 | NUR ---
URINE COLLECTED AND SENT TO LAB.
--- NOTE | 2020-06-04 20:00 | NUR ---
TALKED TO FAMILY MEMBER ABOUT PT CURRENT STATUS. WILL CONTINUE TO MONITOR.
[2020-06-05] VITALS (23 sets, daily range): BP systolic 96–123; BP diastolic 55–81
[2020-06-05 05:44] LABS: BASOPHILS 0.2 % (0-2); EOSINOPHILS 1.8 % (0-7); HEMATOCRIT 26.2 % (36.0-48.0); HEMOGLOBIN 7.8 g/dL (12-16); IMMATURE GRANULOCYTES 1.8 % (0-5); LYMPHOCYTES 7.6 % (15-50); MCH 29.5 pg (26.0-34.0); MCHC 29.8 g/dL (31.0-37.0); MEAN PLATELET VOLUME 9.2 fL (7.4-10.4); MONOCYTES 7.8 % (2-11); NEUTROPHILS 80.8 % (40-80); PLATELET COUNT 155 10x3/uL (130-400); RBC 2.64 10x6/uL (4.00-5.40); RDW 16.3 % (11.5-14.5); WBC 12.6 10x3/uL (4.8-10.8)
[2020-06-05 05:50] LABS: MCV 99.2 fL (80.0-100.0)
[2020-06-05 06:16] LABS: ANION GAP 13.7 mmol/L (8-16); CALCIUM 8.1 mg/dL (8.5-10.1); CARBON DIOXIDE 22.1 mmol/L (21.0-32.0); CREATININE - SERUM 1.8 mg/dL (0.6-1.3); MAGNESIUM - SERUM 2.2 mg/dL (1.8-2.4); POTASSIUM - SERUM 4.8 mmol/L (3.5-5.1)
[2020-06-05 06:21] LABS: PHOSPHOROUS 3.6 mg/dL (2.5-4.9)
--- NOTE | 2020-06-05 09:30 | NUR ---
DR FAN HERE NEW ORDERS OBTAINED.
--- NOTE | 2020-06-05 10:00 | NUR ---
DR FAN HERE INSTRUCT PT NEEDS A BIGGER ETT WANTS AN 8.0.
--- NOTE | 2020-06-05 10:31 | NUR ---
Nutrition follow-up: Chart reviewed Osmolite 1.0 alejandrina started @ 30 ml/hr per Dr. Triplett Labs reviewed Will continue current TPN regimen @ 60 ml/hr RDN following.
--- NOTE | 2020-06-05 10:52 | NUR ---
DR CATHY ONEIL.
--- NOTE | 2020-06-05 14:00 | NUR ---
BATH GIVEN. NEW WAFER PLACED.
--- NOTE | 2020-06-05 17:14 | NUR ---
DR PATIÑO HERE AND NEW ORDERS OBTAINED.
[2020-06-06] VITALS (22 sets, daily range): BP systolic 94–140; BP diastolic 43–73
[2020-06-06 06:21] LABS: ANION GAP 12.1 mmol/L (8-16); CALCIUM 8.3 mg/dL (8.5-10.1); CARBON DIOXIDE 25.2 mmol/L (21.0-32.0); POTASSIUM - SERUM 4.3 mmol/L (3.5-5.1); VANCOMYCIN - RANDOM 25.2 ug/mL (10.0-20.0)
[2020-06-06 06:27] LABS: BASOPHILS 0.2 % (0-2); EOSINOPHILS 2.2 % (0-7); HEMATOCRIT 29.1 % (36.0-48.0); LYMPHOCYTES 7.8 % (15-50); MCH 29.4 pg (26.0-34.0); MCHC 30.9 g/dL (31.0-37.0); MEAN PLATELET VOLUME 10.1 fL (7.4-10.4); MONOCYTES 8.8 % (2-11); PLATELET COUNT 156 10x3/uL (130-400); RBC 3.06 10x6/uL (4.00-5.40); RDW 18.3 % (11.5-14.5); WBC 12.6 10x3/uL (4.8-10.8)
[2020-06-06 06:28] LABS: MCV 95.1 fL (80.0-100.0)
[2020-06-06 06:33] LABS: CREATININE - SERUM 2.3 mg/dL (0.6-1.3)
--- NOTE | 2020-06-06 08:06 | NUR ---
RESIDUAL 130. ASSESSMENT PER FLOWSHEET.
--- NOTE | 2020-06-06 08:55 | NUR ---
Nutrition follow-up: Pt remains intubated, sedated with Osmolite 1.0 alejandrina @ 50 ml/hr Spoke with surgeon; TPN rate decreased to 30 ml/hr and discontinued after current bag. Labs reviewed RDN following.
--- NOTE | 2020-06-06 09:39 | NUR ---
FAMILY UPDATED. SON WANTS TO COME AND SEE MOTHER. INSTRUCT DUE TO COVID VISITATION IS CLOSED. CAN UPDATE AT ANYTIME.
--- NOTE | 2020-06-06 17:18 | NUR ---
RESIDUAL IS 350 ORDER IS TO STOP TUBE FEEDING IF 400 OR GREATER WILL CONTINUE OSMOLITE 1.0 AT 50 CC/HR.
[2020-06-07] VITALS (23 sets, daily range): BP systolic 109–166; BP diastolic 56–88
[2020-06-07 06:32] LABS: BASOPHILS 0.1 % (0-2); EOSINOPHILS 2.6 % (0-7); HEMATOCRIT 29.5 % (36.0-48.0); HEMOGLOBIN 9.1 g/dL (12-16); IMMATURE GRANULOCYTES 1.3 % (0-5); LYMPHOCYTES 10.7 % (15-50); MCH 29.4 pg (26.0-34.0); MCHC 30.8 g/dL (31.0-37.0); MCV 95.2 fL (80.0-100.0); MEAN PLATELET VOLUME 10.1 fL (7.4-10.4); MONOCYTES 7.7 % (2-11); NEUTROPHILS 77.6 % (40-80); PLATELET COUNT 164 10x3/uL (130-400); RDW 17.4 % (11.5-14.5); WBC 9.8 10x3/uL (4.8-10.8)
[2020-06-07 06:54] LABS: CALCIUM 8.4 mg/dL (8.5-10.1); CARBON DIOXIDE 26.8 mmol/L (21.0-32.0); CREATININE - SERUM 2.6 mg/dL (0.6-1.3); POTASSIUM - SERUM 3.8 mmol/L (3.5-5.1); VANCOMYCIN - RANDOM 16.2 ug/mL (10.0-20.0)
--- NOTE | 2020-06-07 07:00 | NUR ---
PT REPORT RECEIVED FROM CORE MAKER HELPER NURSE. NO ACUTE SIGNS OF DISTRES NOTED. SHIFT ASSESSMENT COMPLETED. WILL CONTINUE TO MONITOR
--- NOTE | 2020-06-07 11:00 | NUR ---
DR FAN AT BEDSIDE. ORDER RECEIVED TO DECREASE SEDATION AND START PT ON PSV TRIAL. RT NOTIFIED. SEDATION DECREASED. WILL CONTINUE TO MONITOR
--- NOTE | 2020-06-07 12:00 | NUR ---
PT FAILED PSV TRIAL. SWITCHED BACK OVER TO A/C ON VENT. SEDATION STARTED BACK.
--- NOTE | 2020-06-07 15:00 | NUR ---
PT RESTING IN BED. REASSESSMETN COMPLETED. NO ACUTE SIGNS OF DISTRESS NOTED. WILL COTNINUE TO MONITOR
[2020-06-08] VITALS (19 sets, daily range): BP systolic 95–151; BP diastolic 50–92
--- NOTE | 2020-06-08 05:07 | NUR ---
0045 NOTED PT TEMP HAD INCREASED TO 100.7 650MG OF TYLENOL ADMINISTERED VIA TUBE. 0145 TEMP IS 100.6
--- NOTE | 2020-06-08 05:09 | NUR ---
0245 PT BECOMING AGITATED WITH GUPPY BREATHING. INCREASED DIPRAVAN TO 30MCG. BP 152/72 WITH HR OF 111 0300 B/P 126/61 HR 101 PT BREATHING HAS IMPROVED. 0330 105/88 91 CONTINUING TO MONITOR
--- NOTE | 2020-06-08 05:19 | NUR ---
0100 WOUND VAC DRESSING CHANGE. MIDLINE OPEN INCISION MEASURES 7CM X 4CM X 4CM. RIGHT LOWER ABDOMEN INCISION MEASURES 1.5CM X4CM X 2.5. DRESSINGS CHANGED USING 1 PIECE OF BLACK SPONGE IN EACH WOUND AND BRIDGING WITH AN EXTRA STRIP OF BLACK SPONGE. ALSO CHANGED THE OSTOMY BAG AND APPLIANCE. PT TOLERATED WELL.
[2020-06-08 06:51] LABS: BASOPHILS 0.4 % (0-2); EOSINOPHILS 2.4 % (0-7); HEMATOCRIT 28.9 % (36.0-48.0); HEMOGLOBIN 8.8 g/dL (12-16); IMMATURE GRANULOCYTES 1.4 % (0-5); LYMPHOCYTES 13.5 % (15-50); MCH 29.5 pg (26.0-34.0); MCHC 30.4 g/dL (31.0-37.0); MEAN PLATELET VOLUME 10.6 fL (7.4-10.4); NEUTROPHILS 74.3 % (40-80); PLATELET COUNT 152 10x3/uL (130-400); RBC 2.98 10x6/uL (4.00-5.40); RDW 16.8 % (11.5-14.5); WBC 9.1 10x3/uL (4.8-10.8)
--- NOTE | 2020-06-08 07:00 | NUR ---
BEDSIDE REPORT RECEIVED. SHIFT ASSESSMENT COMPLETED PER FLOWSHEET, SEE FLOWSHEET FOR INFORMATION. PT HAS A FEVER OF 103.3F. ICE PACKS APPLIED LIBERALLY, TYLENOL GIVEN PER EMAR. WILL RECHECK TEMP. ALL OTHER VSS. WILL CONT TO MONITOR.
--- NOTE | 2020-06-08 07:30 | NUR ---
AT BEDSIDE, NOTIFIED OF FEVER. NO NEW ORDERS RECEIVED. WILL CONT TO MONITOR.
[2020-06-08 07:49] LABS: ANION GAP 13.1 mmol/L (8-16); CALCIUM 7.9 mg/dL (8.5-10.1); CARBON DIOXIDE 29.3 mmol/L (21.0-32.0); CREATININE - SERUM 3.2 mg/dL (0.6-1.3); MAGNESIUM - SERUM 1.9 mg/dL (1.8-2.4); PHOSPHOROUS 3.9 mg/dL (2.5-4.9); POTASSIUM - SERUM 3.4 mmol/L (3.5-5.1); VANCOMYCIN - RANDOM 18.9 ug/mL (10.0-20.0)
--- NOTE | 2020-06-08 09:00 | NUR ---
RECHECKED TEMP, 103.0F. NOTIFED , ORDER FOR BLOOD CULTURES RECEIVED. WILL CONT TO MONITOR.
--- NOTE | 2020-06-08 10:21 | NUR ---
Nutrition follow-up: Osmolite 1.0 alejandrina @ goal rate of 50 ml/hr D5 increased to 100 ml/hr Labs reviewed May need dialysis soon per renal Wt: 244# Propofol @ 20 ml/hr RDN following.
--- NOTE | 2020-06-08 11:00 | NUR ---
REASSESSMENT COMPLETED PER FLOWSHEET, SEE FLOWSHEET FOR INFORMATION. PT TEMP DECREASED TO 100.9. WILL CONT TO APPLY ICE PACKS. WILL CONT TO MONITOR.
--- NOTE | 2020-06-08 13:00 | NUR ---
PT RESTING IN BED, INTUBATED AND SEDATED. ICE PACKS STILL IN PLACE, WILL GIVE CHG BEDBATH TODAY. WILL CONT TO MONITOR.
--- NOTE | 2020-06-08 15:00 | NUR ---
REASSESSMENT COMPLETED PER FLOWSHEET, SEE FLOWSHEET FOR INFORMATION. PT FEVER 103 AGAIN. TYLENOL AND ICE PACKS GIVEN. SPOKE WITH FAMILY ON PHONE AND WHEN UPDATING FAMILY ABOUT PT CONDITION, FAMILY YELLED AND HUNG UP ON ME. WILL CONT TO MONITOR.
--- NOTE | 2020-06-08 15:54 | NUR ---
CHG BEDBATH GIVEN. WILL CONT TO MONITOR.
--- NOTE | 2020-06-08 17:00 | NUR ---
PT INTUBATED AND SEDATED. STILL HAS A FEVER. WILL CONT TO MONITOR.
--- NOTE | 2020-06-08 19:00 | NUR ---
REPORT RECEIVED INITIAL ASSESSMENT COMPLETE. PT INTUBATED AND SEDATED SEE RESP FOR VENT SETTINGS CHANGES AND IV DRIP FLOWSHEET FOR DRIP CHANGES. BED LOW POSITION CM READING SR-ST WITHOUT ECTOPY ALARMS ON AND AUDIBLE CPOC WILL CONTINUE TO MONITOR
--- NOTE | 2020-06-08 22:00 | NUR ---
DR FAN ON PHONE CHECKING ON HIS PATIENTS IN UNIT UPDATE GIVEN NO NEW ORDERS AT THIS TIME
[2020-06-09] VITALS (22 sets, daily range): BP systolic 96–164; BP diastolic 42–88
--- NOTE | 2020-06-09 | NUR ---
PTS SISTER SHEYLA CALLED BACK AND REQUESTED [facility] AND GAVE CONSENT TO RELEASE BODY TO [facility].
--- NOTE | 2020-06-09 03:00 | NUR ---
REASSESSMENT COMPLETE NO CHANGES CPOC
[2020-06-09 06:30] LABS: MAGNESIUM - SERUM 1.8 mg/dL (1.8-2.4); VANCOMYCIN - RANDOM 21.3 ug/mL (10.0-20.0)
[2020-06-09 06:31] LABS: PHOSPHOROUS 5.5 mg/dL (2.5-4.9)
--- NOTE | 2020-06-09 07:00 | NUR ---
BEDSIDE REPORT RECEIVED. SHIFT ASSESSMENT COMPLETED PER FLOWSHEET, SEE FLOWSHEET FOR INFORMATION. PT INTUBATED AND SEDATED, DECREASED SEDATION PER PROTOCOL FOR SEDATION VACATION. TURNED PT PER COMFORT. ORAL AND INLINE SUCTIONED. NO ACUTE NEEDS OR DISTRESS NOTED AT THIS TIME. VSS. WILL CONT TO MONITOR.
[2020-06-09 07:39] LABS: POTASSIUM - SERUM 4.1 mmol/L (3.5-5.1)
--- NOTE | 2020-06-09 09:00 | NUR ---
PT INTUBATED AND SEDATED. TITRATED SEDATION VIA SEDATION VACATION PROTOCOL. WILL CONT TO MONITOR.
[2020-06-09 09:17] LABS: ANION GAP 16.6 mmol/L (8-16); CALCIUM 7.2 mg/dL (8.5-10.1); CARBON DIOXIDE 28.5 mmol/L (21.0-32.0); CREATININE - SERUM 3.1 mg/dL (0.6-1.3)
--- NOTE | 2020-06-09 11:00 | NUR ---
REASSESSMENT COMPLETED PER FLOWSHEET, SEE FLOWSHEET FOR INFORMATION. NO ACUTE NEEDS OR DISTRESS NOTED AT THIS TIME. VSS. WILL CONT TO MONITOR.
--- NOTE | 2020-06-09 12:19 | NUR ---
GIVE PO CONTRAST THROUGH THE NGT. WHEN ASKED IF HE WANTED ME TO PUT THE ORDER IN HE DENIED AND SAID THAT DOESN'T NEED AN ORDER.
--- NOTE | 2020-06-09 12:50 | NUR ---
ORAL CONTRAST GIVEN VIA NGT. WILL CONT TO MONITOR.
--- NOTE | 2020-06-09 15:00 | NUR ---
REASSESSMENT COMPLETED PER FLOWSHEET, SEE FLOWSHEET FOR INFORMATION. NO ACUTE NEEDS OR DISTRESS NOTED AT THIS TIME. WILL CONT TO MONITOR.
[2020-06-09 17:29] LABS: ANION GAP 9.4 mmol/L (8-16); CALCIUM 7.1 mg/dL (8.5-10.1); CARBON DIOXIDE 33.6 mmol/L (21.0-32.0)
--- NOTE | 2020-06-09 17:51 | NUR ---
SPOKE WITH . NEW ORDER TO INCREASE FREE WATER FROM NGT FROM 30ML EVERY HOUR TO 40ML EVERY HOUR. WILL CONT TO MONITOR.
--- NOTE | 2020-06-09 19:00 | NUR ---
REPORT RECEIVED INITIAL ASSESSMENT COMPLETE SEE ASSESSMENT FLOWSHEETS. CM READING SR-ST WITHOUT ECTOPY ALARMS ON AND AUDIBLE. PT SEDATED SEE IV FLOWSHEET FOR DRIP CHANGES. ORALLY INTUBATED SEE RESP FOR VENT SETTINGS AND CHANGES. ORAL CARE PROVIDED REPOSITIONED FOR COMFORT
--- NOTE | 2020-06-09 21:15 | NUR ---
DR FAN PAGEDel INFORMED OF PTS HEART RATE INCREASED O2 SAT DOWN TO LOW 80'S WITH AGONAL RESPIRATIONS ORDERED RECRUITMENT MANEUVER AND INCREASE PEEP TO 12 AFTER RECRUITMENT MANEUVER COMPLETE.
--- NOTE | 2020-06-09 21:30 | NUR ---
RECRUITMENT MANEUVER AND PEEP INCREASED TO [address] FAN ORDER BY RT
--- NOTE | 2020-06-09 21:39 | NUR ---
CM ALARMING BRADYCARDIC AND ASYSTOLE CODE BLUE CALLED. SEE CODE BLUE FORM
--- NOTE | 2020-06-09 21:40 | NUR ---
[phone] FAN PAGED MULTIPLE TIMES. CALLED PAGER NUMBER [phone] CELL PHONE NUMBER [phone] LEFT VM X 1 CALLED [employer] [phone] CALLED BACK [phone] INFORMED OF PT CODING UPDATED AND INFORMED ATTEMPTING TO GET ABG.
--- NOTE | 2020-06-09 21:45 | NUR ---
RHONDA VELÁSQUEZ APN AND CHRISTIAN HERE FOR CODE RHONDA SPEAKING WITH DR NICHOLAS VIA PHONE INFORMED OF PT CODE. DR NICHOLAS STATED NURSE NEEDS TO CALL DR PATIÑO OF CODE SINCE HE OPERATED ON PT
--- NOTE | 2020-06-09 22:00 | NUR ---
PAGED DR PATIÑO INFORMED OF PT CODING NO NEW ORDERS
--- NOTE | 2020-06-09 22:10 | NUR ---
CALLED PTS SISTER SHEYLA AT [phone] INFORMED OF PT DECLINE AND CODE. RHONDA VELÁSQUEZ APN SPOKE WITH PTS SISTER AND INQUIRED OF FAMILY WISHES TO CONTINUE TO CODE PT. SHE STATED SHE HAD TO CALL COUPLE OTHER FAMILY MEMBERS AND WOULD CALL BACK SOON THEY HAD DECIDED.
[2020-06-09 22:18] LABS: HEMATOCRIT 33.3 % (36.0-48.0); HEMOGLOBIN 9.5 g/dL (12-16); MCH 29.1 pg (26.0-34.0); MCHC 28.5 g/dL (31.0-37.0); MEAN PLATELET VOLUME 12.1 fL (7.4-10.4); PLATELET COUNT 128 10x3/uL (130-400); RBC 3.26 10x6/uL (4.00-5.40); RDW 16.4 % (11.5-14.5); WBC 8.4 10x3/uL (4.8-10.8)
[2020-06-09 22:21] LABS: MCV 102.1 fL (80.0-100.0)
[2020-06-09 22:31] LABS: ALBUMIN 1.5 g/dL (3.4-5.0); ANION GAP 13.8 mmol/L (8-16); BILIRUBIN - TOTAL 0.87 mg/dL (0.2-1.3); CALCIUM 7.4 mg/dL (8.5-10.1); CARBON DIOXIDE 30.3 mmol/L (21.0-32.0); POTASSIUM - SERUM 4.1 mmol/L (3.5-5.1); PROTEIN - SERUM 6.4 g/dL (6.4-8.2)
[2020-06-09 22:32] LABS: CREATININE - SERUM 4.1 mg/dL (0.6-1.3); PHOSPHOROUS 3.5 mg/dL (2.5-4.9)
[2020-06-09 22:35] LABS: LYMPHOCYTES 31 % (15-50); MONOCYTES 5 % (2-11); NEUTROPHILS 52 % (40-80); PLATELET ESTIMATE DECREASED
--- NOTE | 2020-06-09 22:35 | NUR ---
DR GONZALES CALLED CODE PRONOUNCED AT [phone].
--- NOTE | 2020-06-09 22:37 | NUR ---
PTS SISTER SHEYLA CALLED BACK THIS NURSE WAS ATTEMPTING TO CALL HER TO INFORM PT HAD AND CODE HAD BEEN CALLED. SHE SPOKE AT LENGTH WITH RHONDA VELÁSQUEZ APN. SHE IS GOING TO DISCUSS WITH OTHER FAMILY AND MAKE DECISION ON WHICH HOME AND WILL CALL BACK WHEN DECISION MADE,
[2020-06-09 22:46] LABS: D-DIMER-QUANTITATIVE > 20.00 ug/mLFEU (0.20-0.54)
--- NOTE | 2020-06-10 | NUR ---
SHEYLA KELLY PTS SISTER CALLED BACK REQUESTING [facility]. NO FAMILY MEMBERS LIVE IN [place] SHE GAVE CONSENT FOR PTS BELONGINGS TO BE SENT WITH BODY TO HOME. SEE CERTIFICATE FOR DETAILED ITEMIZED LIST. THIS WAS WITNESSED BY PHONE BY A JOSE KIMBALL
--- NOTE | 2020-06-10 00:36 | NUR ---
DARNELL SCHMIDT REPORTED SPOKE WITH RAJESH PHAM REP STATED PT WAS RULED OUT FOR DONATION SECONDARY TO MEDICAL HISTORY REFERENCE NUMBER [phone] GIVEN
--- NOTE | 2020-06-10 04:01 | NUR ---
POST MORTEM CARE COMPLETED CALLED HOME SPOKE WITH IHSAN AT CALLING SERVICE PTS SISTER SHEYLA HAD REQUESTED [facility] IN [place] PHONE NUMBER [phone] TRANSFERRED TO [facility] WITH [facility]
--- NOTE | 2020-06-12 12:16 | NUR ---
Per CMS protocol, restraint report logged into data base.
== END 2020-06-09 22:35 | DRG 853 ==
LOC: D.ER 20:46 → D.M2 20:55 → D.ICU 20:55
PROVIDERS: Emergency Medicine; Family Medicine; Internal Medicine Gastroenterology; Internal Medicine Nephrology; Internal Medicine Pulmonary Disease; Surgery; ADMIT Family Medicine; ATTEND Family Medicine
PROC: 0DTF0ZZ Resection of Right Large Intestine, Open Approach (ICD-10-PCS; 2020-05-31)
PROC: 5A1955Z Respiratory Ventilation, Greater than 96 Consecutive Hours (ICD-10-PCS; 2020-05-31)
PROC: 0BH17EZ Insertion of Endotracheal Airway into Trachea, Via Natural or Artificial Opening (ICD-10-PCS; 2020-05-31)
PROC: 0WQF0ZZ Repair Abdominal Wall, Open Approach (ICD-10-PCS; principal; 2020-05-31 08:15)
PROC: 0WUF0JZ Supplement Abdominal Wall with Synthetic Substitute, Open Approach (ICD-10-PCS; 2020-05-31 08:15)
DX: A41.9 Sepsis, unspecified organism (principal); K43.4 Parastomal hernia with gangrene; J96.01 Acute respiratory failure with hypoxia; J18.9 Pneumonia, unspecified organism; K65.1 Peritoneal abscess; R65.21 Severe sepsis with septic shock; N17.9 Acute kidney failure, unspecified; E87.1 Hypo-osmolality and hyponatremia; K92.2 Gastrointestinal hemorrhage, unspecified; Z68.41 Body mass index [BMI] 40.0-44.9, adult; K63.0 Abscess of intestine; E87.2 Acidosis; N39.0 Urinary tract infection, site not specified; E87.0 Hyperosmolality and hypernatremia; E87.6 Hypokalemia; D64.9 Anemia, unspecified; I10 Essential (primary) hypertension; F41.8 Other specified anxiety disorders; E66.9 Obesity, unspecified; K43.2 Incisional hernia without obstruction or gangrene; J44.9 Chronic obstructive pulmonary disease, unspecified; Z72.0 Tobacco use; K72.90 Hepatic failure, unspecified without coma